=== PATIENT | female | born 1995 | race Caucasian/White ===

== ENCOUNTER 2019-07-16 19:19 | Emergency (ER) | payer SELFPAY ==
[~2019-07-16] VITALS: Ht 162.6 cm; Wt 61.8 kg
[2019-07-16] MEDS ORDERED: normal saline 1000ml 1,000 ML IV ONE (19:27)
[2019-07-16] MEDS ORDERED: morphine 2 MG/ML inj. syringe IV PRN (19:30)
[2019-07-16] MEDS ORDERED: normal saline 1000ML IV soln IVB ONE (19:30)
[2019-07-16] MEDS ORDERED: ondansetron/PF 4mg/2ml inj IV ONE ×2 (19:30→23:15)
[2019-07-16 19:51] LABS: BASOPHILS # (AUTO) 0.1 X10'3 (0-0.2); BASOPHILS % (AUTO) 0.7 % (0-1); EOSINOPHILS # (AUTO) 0.2 X10'3 (0-0.9); EOSINOPHILS % (AUTO) 2.6 % (0-6); HEMATOCRIT 39.9 % (35.0-45.0); HEMOGLOBIN 13.4 g/dl (12.0-16.0); LYMPHOCYTES # (AUTO) 2.8 X10'3 (1.1-4.8); LYMPHOCYTES % (AUTO) 39.4 % (21-51); MEAN CORPUSCULAR HEMOGLOBIN 28.4 PG (27.0-31.0); MEAN CORPUSCULAR HGB CONC 33.7 g/dL (33.0-36.5); MEAN CORPUSCULAR VOLUME 84.3 FL (78-98); MEAN PLATELET VOLUME 8.8 FL (7.4-10.4); MONOCYTES # (AUTO) 0.5 X10'3 (0-0.9); MONOCYTES % (AUTO) 7.2 % (2-12); NEUTROPHILS # (AUTO) 3.6 X10'3 (1.8-7.7); NEUTROPHILS % (AUTO) 50.1 % (42-75); PLATELET COUNT 211 X10'3 (140-440); RED BLOOD COUNT 4.73 X10'6 (4.20-5.60); WHITE BLOOD COUNT 7.2 X10'3 (4.5-11.0)
[2019-07-16 20:03] LABS: PARTIAL THROMBOPLASTIN TIME 31 SECONDS (22-32)
[2019-07-16 20:06] LABS: ALANINE AMINOTRANSFERASE 24 U/L (12-78); ALBUMIN 4.2 G/DL (3.4-5.0); ALBUMIN/GLOBULIN RATIO 1.1 (1.1-1.5); ALKALINE PHOSPHATASE 62 IU/L (46-116); ANION GAP 7 (8-16); ASPARTATE AMINO TRANSFERASE 20 U/L (10-37); BILIRUBIN,TOTAL 0.3 MG/DL (0.1-1.0); BLOOD UREA NITROGEN 11 MG/DL (7-18); BUN/CREATININE RATIO 14.7 (6.6-38.0); CHLORIDE 107 MMOL/L (99-107); CREATININE 0.75 MG/DL (0.40-0.90); GLUCOSE 83 MG/DL (70-104); MAGNESIUM 2.3 MG/DL (1.5-2.4); POTASSIUM 3.7 MMOL/L (3.5-5.1); SODIUM 142 MMOL/L (135-145); TOTAL CARBON DIOXIDE 27.8 MMOL/L (24-32); TOTAL PROTEIN 7.9 G/DL (6.4-8.2); eGFR > 90 ML/MIN
[2019-07-16] MEDS ORDERED: iohexol 300mg/ml 100ml inj. ONE (20:08)
[2019-07-16] MEDS ORDERED: ketamine 10mg/ml 20ml inj IV ONE ×2 (21:50→23:35)
[2019-07-16] MEDS ORDERED: LIDOcaine Viscous 15ml cup MM ONE (21:50)
[2019-07-16] MEDS ORDERED: ketamine 50 mg/ml 10ml vial IV ONE ×2 (22:00→23:45)
--- NOTE | 2019-07-16 22:15 | NUR ---
Ketamine pulled from the omnicell and given to Fazal Sorenson RN to administer during the sedation. Consent for the procedure reviewed and signed by the patient and the provider.
--- NOTE | 2019-07-16 23:45 | NUR ---
[facility] MET RECOVERY SCORE DR. WONG AT BEDSIDE PATIENT WILL BE GOING POV TO [facility] FOR ENT
[2019-07-17 00:03] VITALS: BP 114/77
== END 2019-07-17 00:05 | disposition short-term general hospital (02) ==
LOC: ER 19:21
DX: R47.02 Dysphasia (principal)
CPT/HCPCS: 36415; 70491; 80053; 83735; 85025; 85610; 85730; 96374; 96375; 96376; 99285; J2405; J7030; Q9967